=== PATIENT | female | born 1985 | race Caucasian/White ===

== ENCOUNTER 2021-12-24 12:15 | Emergency (ER) | payer MEDICAID ==
[~2021-12-24] VITALS: Ht 162.6 cm; Wt 73.5 kg
[2021-12-24 12:21] VITALS: BP 137/74
[2021-12-24 13:30] LABS: APPEARANCE,URINE CLEAR (CLEAR); BILIRUBIN,URINE NEGATIVE (NEGATIVE); BLOOD, URINE NEGATIVE (NEGATIVE); COLOR,URINE YELLOW (YELLOW); LEUKOCYTE ESTERASE ,URINE NEGATIVE (NEGATIVE); NITRITE, URINE NEGATIVE (NEGATIVE); UGLUCOSE NEGATIVE (NEGATIVE)
--- NOTE | 2021-12-24 13:58 | NUR ---
PT AMBULATED TO ER BED 2
--- NOTE | 2021-12-24 14:01 | NUR ---
36 Y/O FEMALE BIB SELF C/P MID TO LOW BACK PAIN X 1 DAY. PAIN IS AGRRAVATED WITH MOVEMENT AND ALLEVIATED WITH REST. PT STATES SHE MAY BE 11 WEEKS . PT IS A1. PT DENIES ABDOMINAL PAIN, VAGINAL BLEEDING/DISCHARGE. PT DENIES HEMATURIA, DYURIA. PT DENIES N/V. PT DENIES TAKING ANY MEDICATION PRIOR TO ARRIVAL. PT IS ALERT AND ORIENTED X4. BED IN LOWEST POSITION. BED RAIL X1. PMH:ASTHMA MEDS:DENIES NKA
--- NOTE | 2021-12-24 14:30 | NUR ---
US AT PT BEDSIDE
[2021-12-24 14:49] LABS: BASOPHILS % (AUTO) 0.3 % (0.0-2.0); EOSINOPHILS # (AUTO) 0.1 K/uL (0-0.4); EOSINOPHILS % (AUTO) 0.7 % (0.0-4.0); LYMPHOCYTES # (AUTO) 2.6 K/uL (2.5-16.5); LYMPHOCYTES % (AUTO) 28.5 % (20.5-51.1); MEAN CORPUSCULAR HEMOGLOBIN 29 pg (27-31); MEAN CORPUSCULAR HGB CONC 33 g/dL (33-37); MEAN CORPUSCULAR VOLUME 85.6 fL (80-94); MONOCYTES # (AUTO) 0.6 K/uL (0.8-1.0); MONOCYTES % (AUTO) 6.9 % (1.7-9.3); NEUTROPHILS # (AUTO) 5.8 K/uL (1.8-7.7); NEUTROPHILS % (AUTO) 63.6 % (42.2-75.2); PLATELET COUNT (AUTO) 224 K/uL (140-450); RED CELL DISTRIBUTION WIDTH 13.6 % (11.6-13.7); WHITE BLOOD COUNT (AUTO) 9.1 K/uL (4.8-10.8)
[2021-12-24 15:37] LABS: ALBUMIN 3.5 g/dL (3.4-5.0); ANION GAP 14.3 (8-16); CARBON DIOXIDE 23.9 mmol/L (21-32); CREATININE 0.6 mg/dL (0.6-1.3); POTASSIUM 3.2 mmol/L (3.5-5.1); TOTAL BILIRUBIN 0.2 mg/dL (0.0-1.0)
[2021-12-24] MEDS ORDERED: ACET-10509 PO (16:12)
[2021-12-24 16:23] VITALS: BP 137/74
--- NOTE | 2021-12-24 16:23 | NUR ---
Patient discharged with v/s stable. Written and verbal after care instructions given and explained. Patient verbalized understanding. Ambulatory with steady gait. All questions addressed prior to discharge. RX FOR ACETAMINOPHEN GIVEN. Advised to follow up with PMD.
== END 2021-12-24 16:23 | disposition home or self-care (01) ==
LOC: MED 12:15
DX: O9A.211 Injury, poisoning and certain other consequences of external causes complicating pregnancy, first trimester (principal); S29.012A Strain of muscle and tendon of back wall of thorax, initial encounter; Z3A.11 11 weeks gestation of pregnancy; Z79.899 Other long term (current) drug therapy; X58.XXXA Exposure to other specified factors, initial encounter; Y93.89 Activity, other specified; Y92.89 Other specified places as the place of occurrence of the external cause; Y99.8 Other external cause status
CPT/HCPCS: 36415; 76801; 80053; 81003; 81025; 84702; 85025; 99284; Q0092